=== PATIENT | male | born 2000 | race Caucasian/White ===

== ENCOUNTER → 2018-10-19 | Outpatient (CLI) | payer OTHER ==
--- NOTE | 2018-10-19 18:22 | RAD ---
Right hand, 2 views, 10/19/2018: HISTORY: Hand pain, boxing injury No fracture or dislocation is identified. IMPRESSION: No acute bony abnormality is detected. Electronically signed by: Lauri Bustillos MD (10/19/2018 6:19 PM) [facility]
== END | disposition home or self-care (01) ==
LOC: RAD 10:13
PROVIDERS: ATTEND Registered Nurse
DX: M79.641 Pain in right hand (principal)
CPT/HCPCS: 73120

== ENCOUNTER → 2020-03-04 | Outpatient (CLI) | payer OTHER ==
--- NOTE | 2020-03-04 13:15 | RAD ---
Three-view right hand study Clinical indications: Pain after hitting a punching bag. FINDINGS: No acute fracture or dislocation or lytic process is seen. Scaphoid bone is intact. IMPRESSION: No acute fracture. Electronically signed by: Ty Ramos MD (03/04/2020 1:12 PM) [id number]
== END | disposition home or self-care (01) ==
LOC: RAD 12:55
PROVIDERS: ATTEND Physician Assistant
DX: M79.641 Pain in right hand (principal); W21.09XA Struck by other hit or thrown ball, initial encounter; Y93.89 Activity, other specified; Y92.89 Other specified places as the place of occurrence of the external cause; Y99.8 Other external cause status
CPT/HCPCS: 73130